=== PATIENT | male | born 1980 | race Caucasian/White ===

== ENCOUNTER 2019-04-14 06:48 | Day surgery (SDC) | payer OTHER ==
[2019-04-14] MEDS ORDERED: MIRALAX17 GM PO (11:28)
[2019-04-14] MEDS ORDERED: TRAMADOL HCL50 MG PO (11:28)
[2019-04-14] MEDS ORDERED: NEURONTIN300 MG PO (11:28)
[2019-04-14] MEDS ORDERED: ZOFRAN4 MG PO (11:28)
[2019-04-14] MEDS ORDERED: TYLENOL EXTRA500 MG PO (11:28)
== END 2019-04-14 14:45 | disposition home or self-care (01) ==
LOC: CIR.AMB 06:48
DX: K40.90 Unilateral inguinal hernia, without obstruction or gangrene, not specified as recurrent (principal); D17.6 Benign lipomatous neoplasm of spermatic cord

== ENCOUNTER 2021-08-21 08:59 | Outpatient (CLI) | payer OTHER ==
[~2021-08-21 08:59] MED LIST: MIRALAX17 GM PO; NEURONTIN300 MG PO; TRAMADOL HCL50 MG PO; TYLENOL EXTRA500 MG PO; ZOFRAN4 MG PO
== END 2021-08-21 09:00 | disposition home or self-care (01) ==
LOC: NUCLEAR 08:59
PROVIDERS: ATTEND Specialist/Technologist, Other Nephrology
DX: N19 Unspecified kidney failure (principal); N13.9 Obstructive and reflux uropathy, unspecified
CPT/HCPCS: 78707; A4641; J1940